=== PATIENT | female | born 1970 | race Caucasian/White ===

== ENCOUNTER 2016-08-31 00:56 | Emergency (ER) | payer BC, OTHER ==
[2016-08-31] MEDS ORDERED: DEXAMETHASONE 10 MG/ML VIAL PO STA (01:06)
[2016-08-31] MEDS ORDERED: ACETAMINOPHEN 500 MG TABLET PO STA (01:07)
[2016-08-31] MEDS ORDERED: ACETAMINOPHEN 500 MG TABLET PO ONE (01:11)
[2016-08-31] MEDS ORDERED: DEXAMETHASONE 10 MG/ML VIAL ONE (01:11)
--- NOTE | 2016-08-31 02:32 | ED Physician Documentation ---
PD HPI UPPER EXT INJURY - Stated complaint Stated Complaint: R SHOULDER PX - Chief complaint Chief Complaint: Ext Problem - History obtained from History obtained from: Patient - History of Present Illness Location: Right, Shoulder Where injury occurred: Home Timing - onset: How many days ago (2) Timing - details: Gradual onset, Still present Improved by: Immobilization Worsened by: Moving, Palpating Similar symptoms before: Work up / diagnostics, Treatment Recently seen: Not recently seen - Additonal information Additional information: Patient is a 46 year old female presenting to the emergency department for right sided shoulder pain. Patient states that she has had problems with different joints in the past. patient states that she is very active and does not remember if there was any type of trauma or if she had fallen recently. there is no outwards sign of trauma. Review of Systems Constitutional: denies: Fever, Chills Eyes: denies: Decreased vision, Photophobia Ears: denies: Ear pain, Drainage/discharge Nose: denies: Rhinorrhea / runny nose, Congestion Throat: denies: Dental pain / toothache, Sore throat Cardiac: denies: Chest pain / pressure Respiratory: denies: Cough GI: denies: Nausea, Vomiting : denies: Dysuria, Frequency Skin: denies: Rash, Lesions Musculoskeletal: reports: Extremity pain, Joint pain. 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 - Present Medications Home Medications: Ambulatory Orders Medication Instructions Recorded Confirmed Flecainide [Tambocar] 50 mg PO BID 12/09/12 08/31/16 Metoprolol Succinate [Toprol Xl] 25 mg PO BID 12/09/12 08/31/16 Ibuprofen [Motrin] 400 mg PO Q6H PRN #30 tablet 12/10/12 08/31/16 DULoxetine [Cymbalta] 90 mg PO DAILY 04/06/13 08/31/16 Hydroxyzine HCl 25 mg PO TID 12/21/13 08/31/16 Tizanidine HCl 4 mg PO QPM 12/21/13 08/31/16 - Allergies Allergies/Adverse Reactions: Allergies Allergy/AdvReac Type Severity Reaction Status Date / Time No Known Drug Allergies Allergy Verified 08/31/16 01:04 - Social History Does the pt smoke?: No Smoking Status: Never smoker Does the pt drink ETOH?: Yes Does the pt have substance abuse?: No - Immunizations Immunizations are current?: Yes Immunizations: TDAP current <10years - POLST Patient has POLST: No PD ED PE NORMAL - Vitals Vital signs reviewed: Yes - General General: Alert and oriented X 3, No acute distress - HEENT HEENT: Atraumatic, PERRL - Neck Neck: Supple, no meningeal sign - Cardiac Cardiac: RRR, No murmur - Respiratory Respiratory: No respiratory distress - Abdomen Abdomen: Soft - Derm Derm: Normal color, Warm and dry, No rash - Neuro Neuro: Alert and oriented X 3, No motor deficit, No sensory deficit, Normal speech - Psych Psych: Normal mood, Normal affect PD ED PE EXPANDED - Extremities Extremities: Right shoulder (mild tenderness to palpation, no gross deformity) Results - Vitals Vitals: Vital Signs - 24 hr 08/31/16 08/31/16 01:00 03:21 Temperature 36.6 C Heart Rate 84 77 Respiratory 18 18 Rate Blood Pressure 123/82 H 122/78 O2 Saturation 98 97 Oxygen O2 Source Room air - Rads (name of study) shoulder x-ray Radiology: Final report received (no acute fracture or dislocation) PD MEDICAL DECISION MAKING - ED course Complexity details: reviewed old records, reviewed results, re-evaluated patient , considered differential, d/w patient ED course: Patient was seen and examined at bedside. patient was treated with toradol and decadron and sent for imaging. when patient returned the results were reviewed. Patient had no acute abnormality and was stable for discharge with outpatient follow up. Departure - Departure Disposition: 01 Home, Self Care Clinical Impression: Shoulder pain, right Condition: Good Instructions: ED RICE Follow-Up: Emery Garcia MD [Provider Admit Priv/Credential] - As Needed Comments: Your x-ray today was within normal limits. there was no acute fracture or dislocation. You should ice the shoulder and can alternate with heat. You should take ibuprofen or tylenol as needed for pain. You should follow up with your pmd or the orthopedist listed if your symptoms persist. You may return to the emergency department at any time if necessary for new, worsening or uncontrollable symptoms. Forms: Activity restrictions Discharge Date/Time: 08/31/16 03:22
--- NOTE | 2016-08-31 03:01 | XRAY Preliminary Report ---
Exam: XR Shoulder 3 View RT IMPRESSION: No acute bony abnormality. [facility] SITE ID: [id number]
--- NOTE | 2016-08-31 03:04 | XRAY Report ---
EXAM: RIGHT SHOULDER RADIOGRAPHY EXAM DATE: 08/31/2016 02:34 AM. CLINICAL HISTORY: Right shoulder pain COMPARISON: 06/14/2009 TECHNIQUE: 3 views. FINDINGS: Bones: No displaced fracture or bone lesion. Lower cervical spinal fixation hardware present. Joints: No dislocation. Soft tissues: Chronic calcific rotator cuff tendinitis noted. IMPRESSION: No acute bony abnormality. [facility] Referring Provider Line: [phone] SITE ID: [id number]
[2016-08-31 03:22] VITALS: BP 122/78
== END 2016-08-31 03:22 | disposition home or self-care (01) ==
LOC: ED 00:56
DX: M25.511 Pain in right shoulder (principal); I10 Essential (primary) hypertension
CPT/HCPCS: 73030; 99283; A9270

== ENCOUNTER 2016-09-15 15:51 | Outpatient (CLI) | payer OTHER ==
--- NOTE | 2016-09-15 20:52 | MRI Report ---
EXAM: RIGHT SHOULDER MRI WITHOUT CONTRAST EXAM DATE: 09/15/2016 04:45 PM. CLINICAL HISTORY: FROZEN RIGHT Shoulder, shoulder IMPINGEMENT SYNDROME. COMPARISON: X-ray 08/31/2016, MR 05/15/2014. TECHNIQUE: Multiplanar, multisequence T1-weighted and fluid-sensitive sequences of the shoulder witho ut contrast. Other: None. FINDINGS: Acromioclavicular Region: The acromion is type II. Mild degenerative joint disease, stable. No subac romial/subdeltoid bursal fluid. Glenohumeral Region: Small surgical anchor superior glenoid with small subarticular cyst. Old biceps/ labral repair. Interval increase in a 1 cm degenerative subcortical cyst in the superior lateral humeral head. No fr acture or marrow edema. Labrum: Labrum appears stable since prior with no interval tear. Small anterior superior labrum versu s postsurgical appearance. Musculature/Rotator Cuff: Mild T2 hyperintensity distal supraspinatus, tendinosis. Remaining rotator cuff tendons intact. No edema or fatty atrophy. Biceps Tendon: The long head of the biceps tendon and biceps kristen are intact. Other: The subcutaneous tissues are unremarkable. IMPRESSION: 1. Stable postoperative appearance superior glenoid, either previous labral and/or biceps anchor appe ar. Labrum appears stable. 2. Mild interval increase in a degenerative subcortical cyst in the superolateral humeral head. 3. Mild distal supraspinatus tendinosis. [facility] MUSCULOSKELETAL RADIOLOGY SECTION Referring Provider Line: [phone] SITE ID: [id number]
== END 2016-09-15 15:52 | disposition home or self-care (01) ==
LOC: DI 15:51
PROVIDERS: ATTEND Family Medicine
DX: M89.8X1 Other specified disorders of bone, shoulder (principal)

== ENCOUNTER 2016-12-19 13:24 | Outpatient (CLI) | payer OTHER ==
[2016-12-19 12:54] LABS: BASOPHILS # (AUTO) 0.1 10^3/uL (0.0-0.1); BASOPHILS % (AUTO) 0.7 %; EOSINOPHILS # (AUTO) 0.6 10^3/uL (0.0-0.7); EOSINOPHILS % (AUTO) 6.2 %; HCT - HEMATOCRIT 42.1 % (37.0-47.0); HGB - HEMOGLOBIN 14.2 g/dL (12.0-16.0); LYMPHOCYTES # (AUTO) 2.2 10^3/uL (1.5-3.5); LYMPHOCYTES % (AUTO) 22.8 %; MEAN CORPUSCULAR HEMOGLOBIN 29.1 pg (27.0-31.0); MEAN CORPUSCULAR HGB CONC 33.8 g/dL (32.0-36.0); MEAN CORPUSCULAR VOLUME 86.1 fL (81.0-99.0); MEAN PLATELET VOLUME 7.6 fL (7.9-10.8); MONOCYTES # (AUTO) 0.6 10^3/uL (0.0-1.0); NEUTROPHILS # (AUTO) 6.3 10^3/uL (1.5-6.6); NEUTROPHILS % (AUTO) 64.3 %; NUCLEATED RED BLOOD CELLS AUTO 0.1 /100WBC; RED BLOOD COUNT 4.89 10^6/uL (4.20-5.40); RED CELL DISTRIBUTION WIDTH 12.6 % (12.0-15.0); UNCORRECTED WHITE BLOOD COUNT 9.8 x10^3/uL; WHITE BLOOD COUNT 9.8 x10^3/uL (4.8-10.8)
[2016-12-19 13:27] LABS: BILIRUBIN,TOTAL 0.3 mg/dL (0.2-1.0); BUN - BLOOD UREA NITROGEN 15 mg/dL (6-20); CALCIUM 9.5 mg/dL (8.5-10.3); CARBON DIOXIDE - CO2 27 mmol/L (21-32); CHLORIDE 103 mmol/L (101-111); CHOL/HDL RATIO 6.4 (<4.4); CHOLESTEROL 212 mg/dL; CREATININE 0.8 mg/dL (0.4-1.0); GFR - MDRD 78 (>89); GLUCOSE 139 mg/dL (70-100); HDL CHOLESTEROL 33 mg/dL; LDL/HDL RATIO 3.1 (<4.4); POTASSIUM 4.4 mmol/L (3.5-5.0); SODIUM 138 mmol/L (135-145); TRIGLYCERIDES 392 mg/dL; VLDL CHOLESTEROL 78 mg/dL
== END 2016-12-19 13:25 | disposition home or self-care (01) ==
LOC: LAB.WCP 13:24
PROVIDERS: ATTEND Physician Assistant Medical
DX: Z00.00 Encounter for general adult medical examination without abnormal findings (principal)
CPT/HCPCS: 36415; 80053; 80061; 84443; 85025

== ENCOUNTER 2017-01-01 08:00 | Outpatient (CLI) | payer OTHER ==
[2017-01-01 20:44] LABS: HEMOGLOBIN A1C 0.8 g/dL
== END 2017-01-01 08:01 | disposition home or self-care (01) ==
LOC: LAB.WCP 08:00
PROVIDERS: ATTEND Physician Assistant Medical
DX: R73.9 Hyperglycemia, unspecified (principal)
CPT/HCPCS: 36415; 83036

== ENCOUNTER 2017-09-24 11:52 | Inpatient (IN) | payer OTHER ==
--- NOTE | 2017-09-24 12:28 | ED Physician Documentation ---
PD HPI NVD - Stated complaint Stated Complaint: VOMITING - Chief complaint Chief Complaint: Abd Pain - History obtained from History obtained from: Patient - History of Present Illness Timing - details: Abrupt onset (4 days ago, and was improved after endoscopy with dilatation of esophagus yesterday.) Associated symptoms: Abdominal pain. No: Fever, Chest pain Contributing factors: No: Sick contact Improved by: Vomiting Worsened by: Eating Recently seen: Surgery (The patient was seen at [facility] on Saturday and given IV fluids and medications. She underwent endoscopy by Dr. Bonilla yesterday and was found to have a food impaction and a stenosis area. The food was removed and the stenosis was dilated. There was some irregular areas that were biopsied. The esophagus was well patent at the time after the endoscopy. The patient had only a few sips of fluid however last evening. She was discharged and went home and this morning upon awakening was having epigastric discomfort and nausea and states she vomited up any attempted oral intake of fluids. She denies any more food intake. This continues into late morning and so she is here for evaluation.) Review of Systems Constitutional: denies: Fever, Chills, Myalgias Nose: denies: Rhinorrhea / runny nose, Congestion Throat: denies: Sore throat GI: reports: Nausea, Vomiting (with attempted oral intake). denies: Abdominal Pain, Diarrhea : denies: Dysuria, Frequency Skin: denies: Rash, Lesions Neurologic: reports: Generalized weakness. 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 - Present Medications Home Medications: Ambulatory Orders Medication Instructions Recorded Confirmed Flecainide [Tambocar] 50 mg PO BID 12/09/12 09/24/17 Metoprolol Succinate [Toprol Xl] 25 mg PO BID 12/09/12 09/24/17 Ibuprofen [Motrin] 400 mg PO Q6H PRN #30 tablet 12/10/12 09/24/17 DULoxetine [Cymbalta] 90 mg PO DAILY 04/06/13 09/24/17 Hydroxyzine HCl 25 mg PO QID PRN 12/21/13 09/24/17 Tizanidine HCl 4 mg PO TID PRN 12/21/13 09/24/17 Bupropion HCl [Bupropion Xl] 300 mg PO DAILY 09/24/17 09/24/17 Mirtazapine [Mirtazapine] 30 mg PO QPM 09/24/17 09/24/17 Multivitamin [Theragran] 1 each PO DAILY 09/24/17 09/24/17 Zolpidem Tartrate [Ambien] 10 mg PO QPM PRN 09/24/17 09/24/17 metFORMIN [Glucophage] 500 mg PO BIDWM 09/24/17 09/24/17 - Allergies Allergies/Adverse Reactions: Allergies Allergy/AdvReac Type Severity Reaction Status Date / Time No Known Drug Allergies Allergy Verified 08/31/16 01:04 - Social History Does the pt smoke?: No Smoking Status: Never smoker Does the pt drink ETOH?: Yes Does the pt have substance abuse?: No - Immunizations Immunizations are current?: Yes Immunizations: TDAP current <10years - POLST Patient has POLST: No PD ED PE NORMAL - Vitals Vital signs reviewed: Yes - General General: Alert and oriented X 3, No acute distress, Well developed/nourished - HEENT HEENT: Ears normal, Pharynx benign. No: Moist mucous membranes - Neck Neck: Supple, no meningeal sign, No adenopathy - Cardiac Cardiac: RRR, No murmur - Respiratory Respiratory: Clear bilaterally - Abdomen Abdomen: Normal bowel sounds, Soft, Non distended, No organomegaly, Other (some tenderness without guarding nor percussion tenderness epigastric area. ) - Back Back: No CVA TTP - Derm Derm: Warm and dry. No: Normal color (somewhat pale) - Extremities Extremities: No deformity, No tenderness to palpate, Normal ROM s pain, No edema , No calf tenderness / cord - Neuro Neuro: Alert and oriented X 3, No motor deficit Eye Opening: Spontaneous Motor: Obeys Commands Verbal: Oriented GCS Score: 15 Results - Vitals Vitals: Vital Signs - 24 hr 09/24/17 09/24/17 09/24/17 12:02 14:11 16:00 Heart Rate 130 H 95 107 H Respiratory 20 16 18 Rate Blood Pressure 127/85 H 118/68 136/81 H O2 Saturation 99 97 96 Oxygen O2 Source Room air - Labs Labs: Laboratory Tests 09/24/17 09/24/17 12:22 12:22 WBC 8.2 RBC 4.94 Hgb 14.4 Hct 42.9 MCV 86.8 MCH 29.1 MCHC 33.5 RDW 12.9 Plt Count 405 MPV 7.1 L Neut # (Auto) 5.9 Lymph # (Auto) 1.4 L [place] # (Auto) 0.5 Eos # (Auto) 0.3 Baso # (Auto) 0.1 Absolute Nucleated RBC 0.00 Nucleated RBC % 0.0 Sodium 135 Potassium 3.5 Chloride 100 L Carbon Dioxide 23 Anion Gap 12.0 BUN 13 Creatinine 1.0 Estimated GFR (MDRD) 60 L Glucose 160 H Calcium 10.1 Phosphorus 3.2 Magnesium 1.8 Total Bilirubin 1.0 AST 34 ALT 37 Alkaline Phosphatase 62 Total Protein 8.5 H Albumin 4.2 Globulin 4.3 H Albumin/Globulin Ratio 1.0 Lipase 37 - Rads (name of study) chest xray Radiology: Prelim report reviewed (no acute process) PD MEDICAL DECISION MAKING - ED course Complexity details: reviewed results, re-evaluated patient (Feeling less nauseated but still vomited back up with just small sips of fluid.), d/w patient , d/w retail sales consultant (Talked with Dr. Greer who is with GI at [facility] and did the patient's scope yesterday. She felt the food was cleared and there was no further impaction and the dilatation was wide open and did not feel the patient would need to be rescoped at this point. She presumes it has some dis-motility and possibly inflammation. See suggest further time for improvement. Consider the idea of an esophagram (our fluoroscopy is down this afternoon we might be able to get it later or tomorrow). Dr. Greer said to contact her in a day or day and a half if the patient is still not able to swallow adequately.), other (talked with Hospitalist Dr. Valadez and conveyed info /conversation with the GI Dr. Greer. ) - Sepsis Event Vital Signs: Vital Signs - 24 hr 09/24/17 09/24/17 09/24/17 12:02 14:11 16:00 Heart Rate 130 H 95 107 H Respiratory 20 16 18 Rate Blood Pressure 127/85 H 118/68 136/81 H O2 Saturation 99 97 96 Oxygen O2 Source Room air Departure - Departure Disposition: ED Place in Observation Clinical Impression: S/P endoscopy Vomiting Qualifiers: Vomiting type: unspecified Vomiting Intractability: intractable Nausea presence : with nausea Qualified Code(s): R11.2 - Nausea with vomiting, unspecified Abdominal pain Qualifiers: Abdominal location: epigastric Qualified Code(s): R10.13 - Epigastric pain Condition: Stable Record reviewed to determine appropriate education?: Yes Discharge Date/Time: 09/24/17 17:30
[2017-09-24] MEDS ORDERED: DEXAMETHASONE 10 MG/ML VIAL IVP STA (12:42)
[2017-09-24] MEDS ORDERED: FAMOTIDINE 20 MG/50 ML 50 ML IV ONE (12:42)
[2017-09-24] MEDS ORDERED: ONDANSETRON 4 MG/2 ML VIAL IVP STA ×2 (12:42→15:22)
[2017-09-24] MEDS ORDERED: SODIUM CHLORIDE 0.9% 1,000 ML IV ONE ×2 (12:42→12:43)
[2017-09-24 12:56] LABS: BASOPHILS # (AUTO) 0.1 10^3/uL (0.0-0.1); BASOPHILS % (AUTO) 0.7 %; EOSINOPHILS # (AUTO) 0.3 10^3/uL (0.0-0.7); EOSINOPHILS % (AUTO) 3.7 %; HGB - HEMOGLOBIN 14.4 g/dL (12.0-16.0); LYMPHOCYTES # (AUTO) 1.4 10^3/uL (1.5-3.5); LYMPHOCYTES % (AUTO) 17.4 %; MEAN CORPUSCULAR HEMOGLOBIN 29.1 pg (27.0-31.0); MEAN CORPUSCULAR HGB CONC 33.5 g/dL (32.0-36.0); MEAN CORPUSCULAR VOLUME 86.8 fL (81.0-99.0); MEAN PLATELET VOLUME 7.1 fL (7.9-10.8); MONOCYTES # (AUTO) 0.5 10^3/uL (0.0-1.0); MONOCYTES % (AUTO) 5.6 %; NEUTROPHILS # (AUTO) 5.9 10^3/uL (1.5-6.6); NEUTROPHILS % (AUTO) 72.6 %; PLT - PLATELET COUNT 405 10^3/uL (130-450); RED BLOOD COUNT 4.94 10^6/uL (4.20-5.40); RED CELL DISTRIBUTION WIDTH 12.9 % (12.0-15.0); WHITE BLOOD COUNT 8.2 x10^3/uL (4.8-10.8)
[2017-09-24 13:00] LABS: ALBUMIN 4.2 g/dL (3.2-5.5); CALCIUM 10.1 mg/dL (8.5-10.3); MAGNESIUM 1.8 mg/dL (1.7-2.8); PHOSPHORUS 3.2 mg/dL (2.5-4.6); TOTAL PROTEIN 8.5 g/dL (6.7-8.2)
--- NOTE | 2017-09-24 16:12 | XRAY Report ---
Procedure Date: 09/24/2017 Accession Number: [id number] / [id number] Procedure: XR - Chest 2 View X-Ray CPT Code: 94570 FULL RESULT: EXAM: CHEST RADIOGRAPHY EXAM DATE: 09/24/2017 03:56 PM. CLINICAL HISTORY: Vomiting; EGD yesterday. COMPARISON: 03/22/2008. TECHNIQUE: 2 views. FINDINGS: Lungs/Pleura: No focal opacities evident. No pleural effusion. No pneumothorax. Normal volumes. Mediastinum: Heart and mediastinal contours are unremarkable. Other: Prior laparoscopic gastric banding. Interval cervical spine fusion. IMPRESSION: Normal 2-view chest radiography. [facility]
--- NOTE | 2017-09-24 16:36 | HISTORY & PHYSICAL EXAMINATION ---
Chief Complaint - Chief Complaint Chief Complaint: Intractable nausea and vomiting History of Present Illness - Admitted From Admitted From:: Home - History Obtained From Records Reviewed: Discharge instructions from EGD yesterday History obtained from: Patient, , ED physician Exam Limitations: None noted - History of Present Illness HPI Comment/Other: Mrs. Chrissie Vides is a very pleasant 47-year-old female who has a history of lap banding many years ago, and he was had a few episodes of obstruction since that time. Last Saturday she ate a cookie and afterwards immediately felt that something might be stuck and she has been unable to drink fluids or eat solids since that time. Yesterday the patient went to [facility] and underwent an EGD with Dr. Bonilla who found that there was some food impacted in the area of the band, which was removed during the EGD, and also feels that there is some residual swelling which is likely causing the current nausea and vomiting. Dr. Bonilla does not feel that the patient should be transferred back down to [place] but rather should be placed inpatient here and watched while she is given fluids, And that the patient should be able to eat in a day or so. 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 - Substance History Use: Uses substance without health or social issues: Cannabis Abuse: Recurrent use of substance despite neg consequences: NONE Dependence: Experiences withdrawal or developed tolerances: NONE - POLST Patient has POLST: No POLST Status: DNR Meds/Allgy - Home Medications Home Medications: Ambulatory Orders Medication Instructions Recorded Confirmed Flecainide [Tambocar] 50 mg PO BID 12/09/12 09/24/17 Metoprolol Succinate [Toprol Xl] 25 mg PO BID 12/09/12 09/24/17 Ibuprofen [Motrin] 400 mg PO Q6H PRN #30 tablet 12/10/12 09/24/17 DULoxetine [Cymbalta] 90 mg PO DAILY 04/06/13 09/24/17 Hydroxyzine HCl 25 mg PO TID 12/21/13 09/24/17 Tizanidine HCl 4 mg PO QPM 12/21/13 09/24/17 buPROPion [Wellbutrin Sr] 100 mg PO BID 09/24/17 09/24/17 - Allergies Allergies/Adverse Reactions: Allergies Allergy/AdvReac Type Severity Reaction Status Date / Time No Known Drug Allergies Allergy Verified 08/31/16 01:04 Review of Systems - Constitutional Constitutional: reports: Fatigue, Weakness, Poor appetite. denies: Fever, Chills - Eyes Eyes: denies: Pain, Irritation, Amaurosis, Blurred vision, Dipolpia - Ears, Nose & Throat Ears, Nose & Throat: denies: Ear pain, Hearing loss, Hearing aids, Tinnitus, Vertigo, Nasal pain, Nasal discharge, Nosebleeds - Cardiovascular Cariovascular: denies: Palpitations, Chest pain, Edema, Syncope - Respiratory Respiratory: denies: Cough, Sputum production, Wheezing, Snoring, Hemoptysis, SOB at rest, SOB with exertion - Gastrointestinal Gastrointestinal: reports: Abdominal pain, Nausea, Vomiting. denies: Constipation, Diarrhea, Rectal bleeding, Black stools, Bloody stools, Bile emesis, [place] blood emesis, Coffee grounds emesis - Genitourinary Genitourinary: denies: Dysuria, Frequency, Urgency, Hematuria - Musculoskeletal Musculoskeletal: denies: Muscle pain, Back pain, Muscle aches, Stiffness - Integumentary Integumentary: denies: Rash, Pruritis, Lesions, Dryness - Neurological Neurological: denies: General weakness, Focal weakness, Headache, Dizziness - Psychiatric Psychiatric: denies: Depression, Anxiety, Suicidal, Hallucinations - Endocrine Endocrine: denies: Polyuria, Polydypsia, Polyphagia - Hematologic/Lymphatic Hematologic/Lymphatic: denies: Anemia, Bruising, Petechiae, Lymphadenopathy - All Other Systems All Other Systems: reports: Reviewed and negative Exam - Vital Signs Reviewed Vital Signs: Yes Vital Signs: Vital Signs x48h Pulse Resp BP Pulse Ox 09/24/17 14:11 95 16 118/68 97 09/24/17 12:02 130 H 20 127/85 H 99 - Physical Exam General Appearance: positive: No acute distress, Alert Eyes Bilateral: positive: Normal inspection, PERRL, EOMI, No lid inflammation, Conjunctivae nml, No scleral icterus ENT: positive: ENT inspection nml, Pharynx nml, No signs of dehydration Neck: positive: Nml inspection, Thyroid nml, No JVD, Trachea midline. negative : Thyromegaly Respiratory: positive: Chest non-tender, No respiratory distress, Breath sounds nml. negative: Wheezes, Rales, Rhonchi Cardiovascular: positive: Regular rate & rhythm, No murmur, No gallop Peripheral Pulses: positive: 1+ Abdomen: positive: Non-tender, No organomegaly, Other (Hypoactive bowel sounds in all 4 quadrants). negative: Guarding, Rebound Back: positive: Nml inspection. negative: CVA tenderness (R), CVA tenderness (L ) Skin: positive: Color nml, No rash, Warm, Dry. negative: Cyanosis Extremities: positive: Non-tender, Full ROM, Nml appearance, No pedal edema Neurologic/Psychiatric: positive: Oriented x3, CN's nml (2-12), Motor nml, Sensation nml, Mood/affect nml Conclusion/Plan - Problem List (1) Intractable nausea and vomiting Conclusion/Plan: Patient underwent an EGD yesterday and it is believed that the nausea and vomiting secondary to swelling in the area of the patient's lap band. She was seen by Dr. Bonilla yesterday who feels that the patient will improve with time and that we should just admit her, give her IV fluids, correct any electrolyte abnormalities, and slowly reintroduce a clear liquid diet. (2) History of cardiac arrhythmia Conclusion/Plan: The patient has a history of PVCs symptomatic chest palpitations. We will continue her on her flecainide and metoprolol while she is inpatient. (3) Hypertension Conclusion/Plan: The patient's blood pressure is fairly well-managed at this time. We will continue her on metoprolol and flecainide. (4) Anxiety and depression Conclusion/Plan: The patient has a history of depression and anxiety, we will continue her on bupropion, Cymbalta, and mirtazapine. (5) Type 2 diabetes mellitus Conclusion/Plan: We will place the patient on a carb controlled diet, continue her metformin while she is inpatient, and monitor her blood sugars. If she is consistently high we will start her on a sliding scale. - Lab Results Lab results reviewed: Yes Fish Bones: 09/24/17 12:22 09/24/17 12:22 - Diagnostic Imaging Results Diagnostic Imaging Results: positive: Final report reviewed Diagnostic Imaging Results Comments: EXAM: CHEST RADIOGRAPHY EXAM DATE: 09/24/2017 03:56 PM. CLINICAL HISTORY: Vomiting; EGD yesterday. COMPARISON: 03/22/2008. TECHNIQUE: 2 views. FINDINGS: Lungs/Pleura: No focal opacities evident. No pleural effusion. No pneumothorax. Normal volumes. Mediastinum: Heart and mediastinal contours are unremarkable. Other: Prior laparoscopic gastric banding. Interval cervical spine fusion. IMPRESSION: Normal 2-view chest radiography. Core Measures - Anticipated LOS I expect patient to be DC'd or transferred within 96 hours.: Yes - DVT/VTE - Prophylaxis VTE/DVT Device ordered at admit?: Yes
[2017-09-24] MEDS ORDERED: TEMAZEPAM 15 MG CAPSULE PO PRN (16:40)
[2017-09-24] MEDS: ONDANSETRON 4 MG/2 ML VIAL IVP PRN (17:50)
[2017-09-24] MEDS: D5.45NS W/20 MEQ KCL 1,000 ML IV SCH (17:50)
[2017-09-24] MEDS: SODIUM CHLORIDE FLUSH 0.9% 10 ML SYRINGE IVP SCH (17:50)
[2017-09-24] MEDS: HYDROmorphone 0.5 MG/0.5 ML SYRINGE IVP PRN (18:09)
[2017-09-24] MEDS: METOPROLOL SUCCINATE 25 MG TABLET PO SCH (19:55)
[2017-09-24] MEDS: FLECAINIDE 50 MG TABLET PO SCH (19:55)
[2017-09-24] MEDS ORDERED: HALOPERIDOL 5 MG/ML VIAL IM ONE (21:09)
[2017-09-24] MEDS ORDERED: PROCHLORPERAZINE 10 MG/2 ML VIAL IVP PRN (21:09)
[2017-09-25] MEDS: SODIUM CHLORIDE FLUSH 0.9% 10 ML SYRINGE IVP SCH ×3 (00:03→16:29)
[2017-09-25] MEDS: D5.45NS W/20 MEQ KCL 1,000 ML IV SCH ×4 (00:03→20:45)
[2017-09-25 05:48] LABS: HGB - HEMOGLOBIN 13.2 g/dL (12.0-16.0); MEAN CORPUSCULAR HEMOGLOBIN 29.1 pg (27.0-31.0); MEAN CORPUSCULAR HGB CONC 32.9 g/dL (32.0-36.0); MEAN CORPUSCULAR VOLUME 88.4 fL (81.0-99.0); MEAN PLATELET VOLUME 6.9 fL (7.9-10.8); RED BLOOD COUNT 4.53 10^6/uL (4.20-5.40); RED CELL DISTRIBUTION WIDTH 13.1 % (12.0-15.0); WHITE BLOOD COUNT 10.9 x10^3/uL (4.8-10.8)
[2017-09-25 06:01] LABS: CALCIUM 8.9 mg/dL (8.5-10.3); CREATININE 0.7 mg/dL (0.4-1.0)
[2017-09-25] MEDS: PANTOPRAZOLE 40 MG VIAL IVP SCH ×2 (06:16→16:29)
[2017-09-25] MEDS: SODIUM CHLORIDE FLUSH 0.9% 10 ML SYRINGE IVP PRN ×4 (06:17→20:38)
[2017-09-25] MEDS: HYDROmorphone 0.5 MG/0.5 ML SYRINGE IVP PRN (06:35)
[2017-09-25] MEDS ORDERED: IBUPROFEN 400 MG TABLET PO PRN (07:40)
[2017-09-25] MEDS ORDERED: ZOLPIDEM 5 MG TABLET PO PRN (07:40)
[2017-09-25] MEDS ORDERED: hydrOXYzine PAMOATE 25 MG CAPSULE PO PRN (07:40)
[2017-09-25] MEDS ORDERED: tiZANidine 4 MG TABLET PO PRN (07:40)
[2017-09-25] MEDS ORDERED: buPROPion XL 150 MG TABLET PO SCH (09:00)
[2017-09-25] MEDS: METOPROLOL SUCCINATE 25 MG TABLET PO SCH ×2 (09:48→20:37)
[2017-09-25] MEDS: metFORMIN 500 MG TABLET PO SCH ×2 (09:51→17:11)
[2017-09-25] MEDS: buPROPion XL 150 MG TABLET PO SCH (09:53)
[2017-09-25] MEDS: DULoxetine 30 MG CAPSULE PO SCH (10:02)
[2017-09-25] MEDS: POLYETHYLENE GLYCOL 3350 17 GM PACKET PO SCH (10:03)
[2017-09-25] MEDS: FLECAINIDE 50 MG TABLET PO SCH ×2 (10:04→20:38)
[2017-09-25] MEDS: MULTIVITAMIN TABLET PO SCH (10:05)
[2017-09-25] MEDS: ONDANSETRON 4 MG/2 ML VIAL IVP PRN (12:57)
--- NOTE | 2017-09-25 16:09 | PROVIDER PROGRESS NOTE ---
Subjective - Prog Note Date Prog Note Date: 09/25/17 Prog Note Time: 15:10 - Subjective Pt reports feeling: Improved Subjective: The patient is showing some improvement. She has been able to drink some sips of fluids and keep it down however she did vomit back up some Jell-O that she had for lunch. She notes that she has been just picking at the Jell-O since that time and has not vomited. She denies any fevers or chills or any significant pain. Current Medications - Current Medications Current Medications: Active Medications Generic Name Dose Route Start Last Admin Trade Name Freq PRN Reason Stop Dose Admin Bupropion HCl 300 mg 09/25/17 09:00 09/25/17 09:53 Wellbutrin Xl PO 300 mg DAILY MARCELA Administration Duloxetine HCl 90 mg 09/25/17 09:00 09/25/17 10:02 Cymbalta PO 90 mg DAILY MARCELA Administration Flecainide Acetate 50 mg 09/24/17 21:00 09/25/17 10:04 Tambocar PO 50 mg BID MARCELA Administration Hydromorphone HCl 0.5 mg 09/24/17 16:40 09/25/17 06:35 Dilaudid Inj Syringe IVP 0.5 mg Q2H PRN Administration Pain 8 to 10 Hydroxyzine Pamoate 25 mg 09/25/17 07:40 Vistaril PO QID PRN Anxiety Potassium Chloride/Dextrose/Sod Cl 1,000 mls @ 150 mls/hr 09/24/17 17:00 07/10 14:03 D5.45ns W/20 Meq Kcl IV 150 mls/hr .Q6H40M MARCELA Administration Ibuprofen 400 mg 09/25/17 07:40 Motrin PO Q6H PRN PAIN Metformin HCl 500 mg 09/25/17 08:00 09/25/17 09:51 Glucophage PO 500 mg BIDWM MARCELA Administration Metoprolol Succinate 25 mg 09/24/17 21:00 09/25/17 09:48 Toprol Xl PO 25 mg BID MARCELA Administration Mirtazapine 30 mg 09/25/17 21:00 Remeron PO QPM MARCELA Multivitamins 1 tab 09/25/17 09:00 09/25/17 10:05 Theragran PO Not Given DAILY MARCELA Ondansetron HCl 4 mg 09/24/17 16:40 09/25/17 12:57 Zofran Inj IVP 4 mg Q6HR PRN Administration Nausea / Vomiting Pantoprazole Sodium 40 mg 09/25/17 07:00 09/25/17 06:16 Protonix IVP 40 mg BIDAC MARCELA Administration Polyethylene Glycol 17 gm 09/25/17 09:00 09/25/17 10:03 Miralax PO Not Given DAILY MARCELA Prochlorperazine Edisylate 10 mg 09/24/17 21:09 Compazine Inj IVP Q4HR PRN Nausea / Vomiting Sodium Chloride 10 ml 09/24/17 16:40 09/25/17 06:17 Normal Saline Flush 0.9% IVP 10 ml PRN PRN Administration NEEDED PER PROVIDER ORDERS Sodium Chloride 10 ml 09/24/17 17:00 09/25/17 10:03 Normal Saline Flush 0.9% IVP Not Given 0100,0900,1700 MARCELA Tizanidine HCl 4 mg 09/25/17 07:40 Zanaflex PO TID PRN Spasms Zolpidem Tartrate 10 mg 09/25/17 07:40 Ambien PO QPM PRN Insomnia Flecainide [Tambocar] 50 mg PO BID 12/09/12 Metoprolol Succinate [Toprol Xl] 25 mg PO BID 12/09/12 DULoxetine [Cymbalta] 90 mg PO DAILY 04/06/13 Hydroxyzine HCl 25 mg PO QID PRN 12/21/13 Tizanidine HCl 4 mg PO TID PRN 12/21/13 Bupropion HCl [Bupropion Xl] 300 mg PO DAILY 09/24/17 Mirtazapine [Mirtazapine] 30 mg PO QPM 09/24/17 Multivitamin [Theragran] 1 each PO DAILY 09/24/17 Zolpidem Tartrate [Ambien] 10 mg PO QPM PRN 09/24/17 metFORMIN [Glucophage] 500 mg PO BIDWM 09/24/17 Objective - Vital Signs/Intake & Output Reviewed Vital Signs: Yes Vital Signs: Vital Signs x48h Temp Pulse Resp BP Pulse Ox 09/25/17 15:38 36.9 C 80 16 115/70 96 09/25/17 13:24 36.6 C 70 16 116/59 L 97 Intake & Output: Intake & Output 07/01/18 07/02/18 07/03/18 07/04/18 23:59 23:59 23:59 23:59 Intake Total 150 3165.0 Balance 150 3165.0 - Objective General Appearance: positive: Alert, Mild distress Eyes Bilateral: positive: Normal inspection, PERRL, EOMI, No lid inflammation, Conjunctivae nml, No scleral icterus ENT: positive: ENT inspection nml, Pharynx nml, No signs of dehydration Neck: positive: Nml inspection, Thyroid nml, No JVD, Trachea midline. negative : Thyromegaly Respiratory: positive: Chest non-tender, No respiratory distress, Breath sounds nml. negative: Wheezes, Rales, Rhonchi Cardiovascular: positive: Regular rate & rhythm, No murmur, No gallop Abdomen: positive: Non-tender, No organomegaly, Nml bowel sounds, No distention. negative: Guarding, Rebound Back: positive: Nml inspection. negative: CVA tenderness (R), CVA tenderness (L ) Skin: positive: Color nml, No rash, Warm, Dry. negative: Cyanosis Extremities: positive: Non-tender, Full ROM, Nml appearance, No pedal edema Neurologic/Psychiatric: positive: Oriented x3, CN's nml (2-12), Motor nml, Sensation nml, Mood/affect nml - Lab Results Fish Bones: 09/25/17 05:25 09/25/17 05:25 Other Labs: Lab Results x24hrs 09/25/17 09/25/17 Range/Units 05:25 05:25 WBC 10.9 H (4.8-10.8) x10^3/uL RBC 4.53 (4.20-5.40) 10^6/uL Hgb 13.2 (12.0-16.0) g/dL Hct 40.0 (37.0-47.0) % MCV 88.4 (81.0-99.0) fL MCH 29.1 (27.0-31.0) pg MCHC 32.9 (32.0-36.0) g/dL RDW 13.1 (12.0-15.0) % Plt Count 375 (130-450) 10^3/uL MPV 6.9 L (7.9-10.8) fL Sodium 137 (135-145) mmol/L Potassium 4.0 (3.5-5.0) mmol/L Chloride 105 (101-111) mmol/L Carbon Dioxide 26 (21-32) mmol/L Anion Gap 6.0 (6-13) BUN 9 (6-20) mg/dL Creatinine 0.7 (0.4-1.0) mg/dL Estimated GFR (MDRD) 90 (>89) Glucose 196 H (70-100) mg/dL Calcium 8.9 (8.5-10.3) mg/dL ABX Reporting Has patient been on IV antibiotics over the past 48 hours?: No Assessment/Plan - Problem List (1) Intractable nausea and vomiting Impression: The patient underwent an EGD 2 days ago and with Soap Sl[employer] Dr. Bonilla who reportedly removed some impacted food and who feels that the patient is experiencing some swelling in the area which is causing her current issues. Dr. Bonilla feels that if we are patient Mrs. Vides will be able to feed again relatively soon. She is tolerating sips of liquids at this time which she could not do yesterday. Continue present care. (2) History of cardiac arrhythmia Impression: The patient has a history of PVCs/symptomatic chest palpitations. We will continue her on her flecainide and metoprolol while she is inpatient.She denies any palpitations while she has been inpatient to this point. (3) Hypertension Impression: The patient's blood pressure has been well-managed up to this point. We will continue her on metoprolol and flecainide. (4) Anxiety and depression Impression: The patient has a history of depression and anxiety, we will continue her on bupropion, Cymbalta, and mirtazapine. (5) Type 2 diabetes mellitus Impression: We will place the patient on a carb controlled diet, continue her metformin while she is inpatient, and monitor her blood sugars. This morning the patient' s blood sugar was 196 but she had not received any metformin since her admission. I will continue to monitor and if her blood sugar is consistently high we will start her on a sliding scale.
[2017-09-25] MEDS: DEXAMETHASONE 4 MG/ML VIAL IVP SCH ×2 (17:00→20:38)
[2017-09-25] MEDS: MIRTAZAPINE 15 MG TABLET PO SCH (20:37)
[2017-09-26] MEDS: D5.45NS W/20 MEQ KCL 1,000 ML IV SCH ×4 (03:12→23:27)
[2017-09-26] MEDS: SODIUM CHLORIDE FLUSH 0.9% 10 ML SYRINGE IVP SCH ×3 (03:14→16:26)
[2017-09-26] MEDS: PANTOPRAZOLE 40 MG VIAL IVP SCH ×2 (06:02→16:26)
[2017-09-26] MEDS: SODIUM CHLORIDE FLUSH 0.9% 10 ML SYRINGE IVP PRN ×6 (06:03→21:10)
[2017-09-26 06:06] LABS: HGB - HEMOGLOBIN 13.2 g/dL (12.0-16.0); MEAN CORPUSCULAR HEMOGLOBIN 28.9 pg (27.0-31.0); MEAN CORPUSCULAR HGB CONC 32.2 g/dL (32.0-36.0); MEAN CORPUSCULAR VOLUME 89.5 fL (81.0-99.0); MEAN PLATELET VOLUME 7.1 fL (7.9-10.8); RED BLOOD COUNT 4.57 10^6/uL (4.20-5.40); RED CELL DISTRIBUTION WIDTH 13.7 % (12.0-15.0); WHITE BLOOD COUNT 11.2 x10^3/uL (4.8-10.8)
[2017-09-26 06:17] LABS: CALCIUM 8.7 mg/dL (8.5-10.3); CREATININE 0.8 mg/dL (0.4-1.0)
[2017-09-26] MEDS: metFORMIN 500 MG TABLET PO SCH ×2 (08:56→17:15)
[2017-09-26] MEDS: FLECAINIDE 50 MG TABLET PO SCH ×2 (08:57→21:03)
[2017-09-26] MEDS: DULoxetine 30 MG CAPSULE PO SCH (08:57)
[2017-09-26] MEDS: METOPROLOL SUCCINATE 25 MG TABLET PO SCH ×2 (08:57→21:03)
[2017-09-26] MEDS: buPROPion XL 150 MG TABLET PO SCH (08:57)
[2017-09-26] MEDS: MULTIVITAMIN TABLET PO SCH (08:57)
[2017-09-26] MEDS: POLYETHYLENE GLYCOL 3350 17 GM PACKET PO SCH (08:58)
[2017-09-26] MEDS: DEXAMETHASONE 4 MG/ML VIAL IVP SCH ×4 (08:58→21:10)
--- NOTE | 2017-09-26 12:36 | PROVIDER PROGRESS NOTE ---
Subjective - Prog Note Date Prog Note Date: 09/26/17 Prog Note Time: 12:35 - Subjective Pt reports feeling: Improved Subjective: The patient is doing much better today. She is smiling for the first time since her admission. She says she feels relief in her abdomen and denies any pain. She is drinking fluids easier but still has not had any solid foods. She denies any fevers, chills, shortness of breath, or chest pain. Current Medications - Current Medications Current Medications: Active Medications Generic Name Dose Route Start Last Admin Trade Name Freq PRN Reason Stop Dose Admin Bupropion HCl 300 mg 09/25/17 09:00 09/26/17 08:57 Wellbutrin Xl PO 300 mg DAILY MARCELA Administration Dexamethasone 4 mg 09/25/17 17:00 09/26/17 08:58 Decadron IVP 4 mg QID MARCELA Administration Duloxetine HCl 90 mg 09/25/17 09:00 09/26/17 08:57 Cymbalta PO 90 mg DAILY MARCELA Administration Flecainide Acetate 50 mg 09/24/17 21:00 09/26/17 08:57 Tambocar PO 50 mg BID MARCELA Administration Hydromorphone HCl 0.5 mg 09/24/17 16:40 09/25/17 06:35 Dilaudid Inj Syringe IVP 0.5 mg Q2H PRN Administration Pain 8 to 10 Hydroxyzine Pamoate 25 mg 09/25/17 07:40 Vistaril PO QID PRN Anxiety Potassium Chloride/Dextrose/Sod Cl 1,000 mls @ 150 mls/hr 09/24/17 17:00 08/09 09:54 D5.45ns W/20 Meq Kcl IV 150 mls/hr .Q6H40M MARCELA Administration Ibuprofen 400 mg 09/25/17 07:40 Motrin PO Q6H PRN PAIN Metformin HCl 500 mg 09/25/17 08:00 09/26/17 08:56 Glucophage PO 500 mg BIDWM MARCELA Administration Metoprolol Succinate 25 mg 09/24/17 21:00 09/26/17 08:57 Toprol Xl PO 25 mg BID MARCELA Administration Mirtazapine 30 mg 09/25/17 21:00 09/25/17 20:37 Remeron PO 30 mg QPM MARCELA Administration Multivitamins 1 tab 09/25/17 09:00 07/05/18 08:57 Theragran PO 1 tab DAILY MARCELA Administration Ondansetron HCl 4 mg 09/24/17 16:40 09/25/17 12:57 Zofran Inj IVP 4 mg Q6HR PRN Administration Nausea / Vomiting Pantoprazole Sodium 40 mg 09/25/17 07:00 09/26/17 06:02 Protonix IVP 40 mg BIDAC MARCELA Administration Polyethylene Glycol 17 gm 09/25/17 09:00 09/26/17 08:58 Miralax PO 17 gm DAILY MARCELA Administration Prochlorperazine Edisylate 10 mg 09/24/17 21:09 09/25/17 17:00 Compazine Inj IVP 10 mg Q4HR PRN Administration Nausea / Vomiting Sodium Chloride 10 ml 09/24/17 16:40 09/26/17 09:53 Normal Saline Flush 0.9% IVP 10 ml PRN PRN Administration NEEDED PER PROVIDER ORDERS Sodium Chloride 10 ml 09/24/17 17:00 09/26/17 08:58 Normal Saline Flush 0.9% IVP 10 ml 0100,0900,1700 MARCELA Administration Tizanidine HCl 4 mg 09/25/17 07:40 Zanaflex PO TID PRN Spasms Zolpidem Tartrate 10 mg 09/25/17 07:40 Ambien PO QPM PRN Insomnia Flecainide [Tambocar] 50 mg PO BID 12/09/12 Metoprolol Succinate [Toprol Xl] 25 mg PO BID 12/09/12 DULoxetine [Cymbalta] 90 mg PO DAILY 04/06/13 Hydroxyzine HCl 25 mg PO QID PRN 12/21/13 Tizanidine HCl 4 mg PO TID PRN 12/21/13 Bupropion HCl [Bupropion Xl] 300 mg PO DAILY 09/24/17 Mirtazapine [Mirtazapine] 30 mg PO QPM 09/24/17 Multivitamin [Theragran] 1 each PO DAILY 09/24/17 Zolpidem Tartrate [Ambien] 10 mg PO QPM PRN 09/24/17 metFORMIN [Glucophage] 500 mg PO BIDWM 09/24/17 Objective - Vital Signs/Intake & Output Reviewed Vital Signs: Yes Vital Signs: Vital Signs x48h Temp Pulse Resp BP Pulse Ox 09/26/17 07:32 36.5 C 75 16 108/75 99 09/26/17 04:37 36.5 C 66 17 108/78 97 Intake & Output: Intake & Output 09/23/17 09/24/17 09/25/17 09/26/17 23:59 23:59 23:59 23:59 Intake Total 150 4585.0 2307.5 Output Total 400 Balance 150 4585.0 1907.5 - Objective General Appearance: positive: No acute distress, Alert Eyes Bilateral: positive: Normal inspection, PERRL, EOMI, No lid inflammation, Conjunctivae nml, No scleral icterus ENT: positive: ENT inspection nml, Pharynx nml, No signs of dehydration Neck: positive: Nml inspection, Thyroid nml, No JVD, Trachea midline. negative : Thyromegaly Respiratory: positive: Chest non-tender, No respiratory distress, Breath sounds nml. negative: Wheezes, Rales, Rhonchi Cardiovascular: positive: Regular rate & rhythm, No murmur, No gallop Abdomen: positive: No organomegaly, Nml bowel sounds, Tenderness. negative: Guarding, Rebound, Mass Back: positive: Nml inspection. negative: CVA tenderness (R), CVA tenderness (L ) Skin: positive: Color nml, No rash, Warm, Dry. negative: Cyanosis Extremities: positive: Non-tender, Full ROM, Nml appearance, No pedal edema Neurologic/Psychiatric: positive: Oriented x3, CN's nml (2-12), Motor nml, Sensation nml, Mood/affect nml - Lab Results Fish Bones: 09/26/17 05:40 09/26/17 05:40 Other Labs: Lab Results x24hrs 09/26/17 09/26/17 09/25/17 Range/Units 05:40 05:40 16:44 WBC 11.2 H (4.8-10.8) x10^3/uL RBC 4.57 (4.20-5.40) 10^6/uL Hgb 13.2 (12.0-16.0) g/dL Hct 40.9 (37.0-47.0) % MCV 89.5 (81.0-99.0) fL MCH 28.9 (27.0-31.0) pg MCHC 32.2 (32.0-36.0) g/dL RDW 13.7 (12.0-15.0) % Plt Count 364 (130-450) 10^3/uL MPV 7.1 L (7.9-10.8) fL Sodium 138 (135-145) mmol/L Potassium 4.2 (3.5-5.0) mmol/L Chloride 107 (101-111) mmol/L Carbon Dioxide 25 (21-32) mmol/L Anion Gap 6.0 (6-13) BUN 8 (6-20) mg/dL Creatinine 0.8 (0.4-1.0) mg/dL Estimated GFR (MDRD) 77 L (>89) Glucose 178 H (70-100) mg/dL POC Whole Bld Glucose 126 H (70 - 100) mg/dL Calcium 8.7 (8.5-10.3) mg/dL - Diagnostic Imaging Diagnostic Imaging Results: positive: Final report reviewed Diagnostic Imaging Comments: EXAM: CHEST RADIOGRAPHY EXAM DATE: 09/24/2017 03:56 PM. CLINICAL HISTORY: Vomiting; EGD yesterday. COMPARISON: 03/22/2008. TECHNIQUE: 2 views. FINDINGS: Lungs/Pleura: No focal opacities evident. No pleural effusion. No pneumothorax. Normal volumes. Mediastinum: Heart and mediastinal contours are unremarkable. Other: Prior laparoscopic gastric banding. Interval cervical spine fusion. IMPRESSION: Normal 2-view chest radiography. ABX Reporting Has patient been on IV antibiotics over the past 48 hours?: No Assessment/Plan - Problem List (1) Intractable nausea and vomiting Impression: The patient underwent an EGD 3 days ago and with Order Detailer Dr. Bonilla who reportedly removed some impacted food and who feels that the patient is experiencing some swelling in the area which is causing her current issues. Dr. Bonilla feels that if we are patient Mrs. Vides will be able to feed again relatively soon. She has been tolerating a clear liquid diet much more easily than she could yesterday. Continue steroids, IVFs. (2) History of cardiac arrhythmia Impression: Patient has a history of PVCs/symptomatic chest palpitations. We will continue her on her home flecainide and metoprolol while she is in the hospital. She denies any palpitations so far during this hospitalization. (3) Hypertension Impression: The patient's blood pressure has been well-managed up to this point. We will continue her on metoprolol and flecainide. (4) Anxiety and depression Impression: The patient has a history of depression and anxiety, we will continue her on bupropion, Cymbalta, and mirtazapine. (5) Type 2 diabetes mellitus Impression: We will place the patient on a carb controlled diet, continue her metformin while she is inpatient, and monitor her blood sugars. The patient's highest blood sugar during this hospitalization was 196 but she had not received any metformin since her admission prior to that reading. I will continue to monitor and if her blood sugar is consistently high we will start her on a sliding scale.
[2017-09-26] MEDS: ONDANSETRON 4 MG/2 ML VIAL IVP PRN (12:50)
[2017-09-26] MEDS: MIRTAZAPINE 15 MG TABLET PO SCH (21:03)
[2017-09-27 05:30] LABS: HGB - HEMOGLOBIN 13.2 g/dL (12.0-16.0); MEAN CORPUSCULAR HEMOGLOBIN 29.1 pg (27.0-31.0); MEAN CORPUSCULAR HGB CONC 32.5 g/dL (32.0-36.0); MEAN CORPUSCULAR VOLUME 89.5 fL (81.0-99.0); MEAN PLATELET VOLUME 7.1 fL (7.9-10.8); RED BLOOD COUNT 4.53 10^6/uL (4.20-5.40); RED CELL DISTRIBUTION WIDTH 13.5 % (12.0-15.0); WHITE BLOOD COUNT 13.4 x10^3/uL (4.8-10.8)
[2017-09-27 05:38] LABS: CALCIUM 8.8 mg/dL (8.5-10.3); CREATININE 0.7 mg/dL (0.4-1.0)
[2017-09-27] MEDS: D5.45NS W/20 MEQ KCL 1,000 ML IV SCH ×3 (05:48→20:00)
[2017-09-27] MEDS: SODIUM CHLORIDE FLUSH 0.9% 10 ML SYRINGE IVP SCH ×4 (05:49→23:38)
[2017-09-27] MEDS: PANTOPRAZOLE 40 MG VIAL IVP SCH ×2 (05:51→16:39)
[2017-09-27] MEDS: DULoxetine 30 MG CAPSULE PO SCH (08:25)
[2017-09-27] MEDS: FLECAINIDE 50 MG TABLET PO SCH ×2 (08:25→20:02)
[2017-09-27] MEDS: DEXAMETHASONE 4 MG/ML VIAL IVP SCH ×4 (08:26→20:02)
[2017-09-27] MEDS: MULTIVITAMIN TABLET PO SCH (08:26)
[2017-09-27] MEDS: buPROPion XL 150 MG TABLET PO SCH (08:26)
[2017-09-27] MEDS: METOPROLOL SUCCINATE 25 MG TABLET PO SCH ×2 (08:26→20:02)
[2017-09-27] MEDS: metFORMIN 500 MG TABLET PO SCH ×2 (08:26→16:40)
[2017-09-27] MEDS: POLYETHYLENE GLYCOL 3350 17 GM PACKET PO SCH (08:38)
--- NOTE | 2017-09-27 14:36 | PROVIDER PROGRESS NOTE ---
Subjective - Prog Note Date Prog Note Date: 09/27/17 Prog Note Time: 12:25 - Subjective Pt reports feeling: Improved Subjective: The patient has had her first solid food since her hospitalization for lunch today. She had a pured diet and she ate about half of it; she says it felt "heavy" in her stomach so she stopped when she was about senior care finished. She was able to tolerate this feeding without any significant nausea and without any vomiting.We will continue with the pured diet tonight and advance her diet to soft tomorrow. If she tolerates this we will consider discharge. Current Medications - Current Medications Current Medications: Active Medications Generic Name Dose Route Start Last Admin Trade Name Freq PRN Reason Stop Dose Admin Bupropion HCl 300 mg 09/25/17 09:00 09/27/17 08:26 Wellbutrin Xl PO 300 mg DAILY MARCELA Administration Dexamethasone 4 mg 09/25/17 17:00 09/27/17 13:12 Decadron IVP 4 mg QID MARCELA Administration Duloxetine HCl 90 mg 09/25/17 09:00 09/27/17 08:25 Cymbalta PO 90 mg DAILY MARCELA Administration Flecainide Acetate 50 mg 09/24/17 21:00 09/27/17 08:25 Tambocar PO 50 mg BID MARCELA Administration Hydromorphone HCl 0.5 mg 09/24/17 16:40 09/25/17 06:35 Dilaudid Inj Syringe IVP 0.5 mg Q2H PRN Administration Pain 8 to 10 Hydroxyzine Pamoate 25 mg 09/25/17 07:40 Vistaril PO QID PRN Anxiety Potassium Chloride/Dextrose/Sod Cl 1,000 mls @ 150 mls/hr 09/24/17 17:00 09/09 13:15 D5.45ns W/20 Meq Kcl IV 150 mls/hr .Q6H40M MARCELA Administration Ibuprofen 400 mg 09/25/17 07:40 Motrin PO Q6H PRN PAIN Metformin HCl 500 mg 09/25/17 08:00 09/27/17 08:26 Glucophage PO 500 mg BIDWM MARCELA Administration Metoprolol Succinate 25 mg 09/24/17 21:00 09/27/17 08:26 Toprol Xl PO 25 mg BID MARCELA Administration Mirtazapine 30 mg 09/25/17 21:00 09/26/17 21:03 Remeron PO 30 mg QPM MACRELA Administration Multivitamins 1 tab 09/25/17 09:00 09/27/17 08:26 Theragran PO 1 tab DAILY MARCELA Administration Ondansetron HCl 4 mg 09/24/17 16:40 09/26/17 12:50 Zofran Inj IVP 4 mg Q6HR PRN Administration Nausea / Vomiting Pantoprazole Sodium 40 mg 09/25/17 07:00 09/27/17 05:51 Protonix IVP 40 mg BIDAC MARCELA Administration Polyethylene Glycol 17 gm 09/25/17 09:00 09/27/17 08:38 Miralax PO Not Given DAILY MARCELA Prochlorperazine Edisylate 10 mg 09/24/17 21:09 09/25/17 17:00 Compazine Inj IVP 10 mg Q4HR PRN Administration Nausea / Vomiting Sodium Chloride 10 ml 09/24/17 16:40 09/26/17 21:10 Normal Saline Flush 0.9% IVP 10 ml PRN PRN Administration NEEDED PER PROVIDER ORDERS Sodium Chloride 10 ml 09/24/17 17:00 09/27/17 08:38 Normal Saline Flush 0.9% IVP 10 ml 0100,0900,1700 MARCELA Administration Tizanidine HCl 4 mg 09/25/17 07:40 Zanaflex PO TID PRN Spasms Zolpidem Tartrate 10 mg 09/25/17 07:40 Ambien PO QPM PRN Insomnia Flecainide [Tambocar] 50 mg PO BID 12/09/12 Metoprolol Succinate [Toprol Xl] 25 mg PO BID 12/09/12 DULoxetine [Cymbalta] 90 mg PO DAILY 04/06/13 Hydroxyzine HCl 25 mg PO QID PRN 12/21/13 Tizanidine HCl 4 mg PO TID PRN 12/21/13 Bupropion HCl [Bupropion Xl] 300 mg PO DAILY 09/24/17 Mirtazapine [Mirtazapine] 30 mg PO QPM 09/24/17 Multivitamin [Theragran] 1 each PO DAILY 09/24/17 Zolpidem Tartrate [Ambien] 10 mg PO QPM PRN 09/24/17 metFORMIN [Glucophage] 500 mg PO BIDWM 09/24/17 Objective - Vital Signs/Intake & Output Reviewed Vital Signs: Yes Vital Signs: Vital Signs x48h Temp Pulse Resp BP Pulse Ox 09/27/17 11:31 36.9 C 87 20 125/77 95 09/27/17 08:00 36.7 C 66 24 104/63 95 Intake & Output: Intake & Output 09/24/17 09/25/17 09/26/17 09/27/17 23:59 23:59 23:59 23:59 Intake Total 150 4585.0 5528.5 2582.5 Output Total 400 Balance 150 4585.0 5128.5 2582.5 - Objective General Appearance: positive: No acute distress, Alert Eyes Bilateral: positive: Normal inspection, PERRL, EOMI, No lid inflammation, Conjunctivae nml, No scleral icterus ENT: positive: ENT inspection nml, Pharynx nml, No signs of dehydration Neck: positive: Nml inspection, Thyroid nml, No JVD, Trachea midline. negative : Thyromegaly Respiratory: positive: Chest non-tender, No respiratory distress, Breath sounds nml. negative: Wheezes, Rales, Rhonchi Cardiovascular: positive: Regular rate & rhythm, No murmur, No gallop Abdomen: positive: Non-tender, No organomegaly, Nml bowel sounds, No distention. negative: Guarding, Rebound, Mass Back: positive: Nml inspection. negative: CVA tenderness (R), CVA tenderness (L ) Skin: positive: Color nml, No rash, Warm, Dry. negative: Cyanosis Extremities: positive: Non-tender, Full ROM, Nml appearance, No pedal edema Neurologic/Psychiatric: positive: Oriented x3, CN's nml (2-12), Motor nml, Sensation nml, Mood/affect nml - Lab Results Fish Bones: 09/27/17 05:15 09/27/17 05:15 Other Labs: Lab Results x24hrs 09/27/17 09/27/17 09/27/17 Range/Units 11:23 07:24 05:15 WBC (4.8-10.8) x10^3/uL RBC (4.20-5.40) 10^6/uL Hgb (12.0-16.0) g/dL Hct (37.0-47.0) % MCV (81.0-99.0) fL MCH (27.0-31.0) pg MCHC (32.0-36.0) g/dL RDW (12.0-15.0) % Plt Count (130-450) 10^3/uL MPV (7.9-10.8) fL Sodium 138 (135-145) mmol/L Potassium 3.7 (3.5-5.0) mmol/L Chloride 105 (101-111) mmol/L Carbon Dioxide 25 (21-32) mmol/L Anion Gap 8.0 (6-13) BUN 8 (6-20) mg/dL Creatinine 0.7 (0.4-1.0) mg/dL Estimated GFR (MDRD) 90 (>89) Glucose 167 H (70-100) mg/dL POC Whole Bld Glucose 107 H 138 H (70 - 100) mg/dL Calcium 8.8 (8.5-10.3) mg/dL 09/27/17 09/26/17 Range/Units 05:15 17:14 WBC 13.4 H (4.8-10.8) x10^3/uL RBC 4.53 (4.20-5.40) 10^6/uL Hgb 13.2 (12.0-16.0) g/dL Hct 40.5 (37.0-47.0) % MCV 89.5 (81.0-99.0) fL MCH 29.1 (27.0-31.0) pg MCHC 32.5 (32.0-36.0) g/dL RDW 13.5 (12.0-15.0) % Plt Count 390 (130-450) 10^3/uL MPV 7.1 L (7.9-10.8) fL Sodium (135-145) mmol/L Potassium (3.5-5.0) mmol/L Chloride (101-111) mmol/L Carbon Dioxide (21-32) mmol/L Anion Gap (6-13) BUN (6-20) mg/dL Creatinine (0.4-1.0) mg/dL Estimated GFR (MDRD) (>89) Glucose (70-100) mg/dL POC Whole Bld Glucose 135 H (70 - 100) mg/dL Calcium (8.5-10.3) mg/dL ABX Reporting Has patient been on IV antibiotics over the past 48 hours?: No Assessment/Plan - Problem List (1) Intractable nausea and vomiting Impression: Related to blockage secondary to gastric banding. We were able to advance the patient's diet to a pured diet today from clear liquids and she was able to tolerate about half of her lunch. We will continue the pured diet tonight and advance the diet tomorrow morning. We will consider discharging her home when she is able tolerate a soft diet. (2) History of cardiac arrhythmia Impression: Patient has a history of PVCs/symptomatic chest palpitations. We will continue her on her home flecainide and metoprolol while she is in the hospital. She denies any palpitations so far during this hospitalization. (3) Anxiety and depression Impression: The patient has a history of depression and anxiety, we will continue her on bupropion, Cymbalta, and mirtazapine. (4) Hypertension Impression: The patient's blood pressure has been well-managed up to this point. We will continue her on metoprolol and flecainide. Qualifiers: Hypertension type: essential hypertension Qualified Code(s): I10 - Essential (primary) hypertension (5) Type 2 diabetes mellitus Impression: We placed the patient on a carb controlled diet and have monitored her blood sugars. The patient's highest blood sugar during this hospitalization was 196 but she had not received any metformin since her admission prior to that reading. I will continue to monitor and if her blood sugar is consistently high we will start her on a sliding scale.
[2017-09-27] MEDS: ONDANSETRON 4 MG/2 ML VIAL IVP PRN (17:55)
[2017-09-27] MEDS: MIRTAZAPINE 15 MG TABLET PO SCH (20:02)
[2017-09-28] MEDS: D5.45NS W/20 MEQ KCL 1,000 ML IV SCH ×2 (02:18→09:03)
[2017-09-28 06:13] LABS: HGB - HEMOGLOBIN 13.1 g/dL (12.0-16.0); MEAN CORPUSCULAR HEMOGLOBIN 28.9 pg (27.0-31.0); MEAN CORPUSCULAR HGB CONC 32.7 g/dL (32.0-36.0); MEAN CORPUSCULAR VOLUME 88.4 fL (81.0-99.0); MEAN PLATELET VOLUME 7.4 fL (7.9-10.8); RED BLOOD COUNT 4.53 10^6/uL (4.20-5.40); RED CELL DISTRIBUTION WIDTH 13.4 % (12.0-15.0)
[2017-09-28] MEDS: SODIUM CHLORIDE FLUSH 0.9% 10 ML SYRINGE IVP SCH (06:32)
[2017-09-28] MEDS: PANTOPRAZOLE 40 MG VIAL IVP SCH (06:32)
[2017-09-28] MEDS: SODIUM CHLORIDE FLUSH 0.9% 10 ML SYRINGE IVP PRN ×3 (06:32→12:27)
[2017-09-28 06:37] LABS: CALCIUM 8.9 mg/dL (8.5-10.3); CREATININE 0.8 mg/dL (0.4-1.0)
[2017-09-28] MEDS: METOPROLOL SUCCINATE 25 MG TABLET PO SCH (08:52)
[2017-09-28] MEDS: metFORMIN 500 MG TABLET PO SCH (08:52)
[2017-09-28] MEDS: buPROPion XL 150 MG TABLET PO SCH (08:53)
[2017-09-28] MEDS: DEXAMETHASONE 4 MG/ML VIAL IVP SCH ×2 (08:53→12:27)
[2017-09-28] MEDS: DULoxetine 30 MG CAPSULE PO SCH (08:53)
[2017-09-28] MEDS: POLYETHYLENE GLYCOL 3350 17 GM PACKET PO SCH (08:53)
[2017-09-28] MEDS: FLECAINIDE 50 MG TABLET PO SCH (08:53)
[2017-09-28] MEDS: MULTIVITAMIN TABLET PO SCH (08:53)
--- NOTE | 2017-09-28 14:17 | Discharge Plan ---
Discharge Plan Disposition: 01 Home, Self Care Condition: Stable Diet: Soft Activity Restrictions: Activity as Tolerated Shower Restrictions: No Driving Restrictions: No Weight Bearing: Full Weight No Smoking: If you smoke, Please STOP! Call for help. Follow-up with: Edel Pacheco PA-C [Primary Care Provider] -
--- NOTE | 2017-09-28 14:19 | DISCHARGE SUMMARY ---
Discharge Summary Admit Date: 09/24/17 Discharge Date: 09/28/17 Discharging Provider: Medina Valadez DO Primary Care Provider: Edel Pacheco Code Status: Do Not Attempt Resuscitation Condition at Discharge: Stable Discharge Disposition: 01 Home, Self Care - DIAGNOSES Admission Diagnoses: 1. Intractable nausea and vomiting 2. History of cardiac arrhythmia 3. Hypertension 4. Anxiety and depression 5. Type 2 diabetes mellitus Discharge Diagnoses with Status of Each Condition: 1. Intractable nausea and vomiting- Thought to be related to the patient's lap banding from 7 years ago. She had an upper endoscopy where parts of a cookie were removed from that area and unfortunately she had a lot of swelling which is taken several days to relieve. She ate a pured diet yesterday and today has tolerated a soft diet. I will discharge her home on a Medrol Dosepak with a soft diet. 2. History of cardiac arrhythmia- Patient has a history of PVCs and symptomatic chest palpitations. She will resume her home dosing of flecainide and metoprolol on discharge.She has been in normal sinus rhythm during this hospitalization. 3. Hypertension- The patient's blood pressure has been fairly well-managed while she has been inpatient. We will continue on her home dosing of metoprolol and flecainide. 4. Anxiety and depression- Patient has a history of depression and anxiety, we will continue her on her home dosing of bupropion, Cymbalta, and mirtazapine. 5. Type 2 diabetes mellitus- The patient's blood sugars have been well controlled while she has been inpatient. She will resume her home medication regimen. - HPI History of Present Illness: Mrs. Chrissie Vides is a very pleasant 47-year-old female who has a history of lap banding many years ago, and he was had a few episodes of obstruction since that time. Last Saturday she ate a cookie and afterwards immediately felt that something might be stuck and she has been unable to drink fluids or eat solids since that time. Yesterday the patient went to [facility] and underwent an EGD with Dr. Bonilla who found that there was some food impacted in the area of the band, which was removed during the EGD, and also feels that there is some residual swelling which is likely causing the current nausea and vomiting. Dr. Bonilla does not feel that the patient should be transferred back down to [place] but rather should be placed inpatient here and watched while she is given fluids, And that the patient should be able to eat in a day or so. - HOSPITAL COURSE Hospital Course: The patient was admitted to medical surgical bed after presenting to the emergency department with intractable nausea and vomiting. She had had an upper endoscopy done the day prior by Dr. Bonilla who removed some parts of a cookie but noted there was a lot of swelling around her lap band area. After consulting with Dr. Bonilla it was felt that the best course would be the bring the patient into the hospital, and slowly advance her diet. Yesterday she was able to have pured meals and today the patient has tolerated a soft diet. We will discharge her home on a soft diet. - ALLERGIES Allergies/Adverse Reactions: Allergies Allergy/AdvReac Type Severity Reaction Status Date / Time No Known Drug Allergies Allergy Verified 08/31/16 01:04 - MEDICATIONS Home Medications: Ambulatory Orders Medication Instructions Recorded Confirmed Flecainide [Tambocar] 50 mg PO BID 12/09/12 09/24/17 Metoprolol Succinate [Toprol Xl] 25 mg PO BID 12/09/12 09/24/17 Ibuprofen [Motrin] 400 mg PO Q6H PRN #30 tablet 12/10/12 09/24/17 DULoxetine [Cymbalta] 90 mg PO DAILY 04/06/13 09/24/17 Hydroxyzine HCl 25 mg PO QID PRN 12/21/13 09/24/17 Tizanidine HCl 4 mg PO TID PRN 12/21/13 09/24/17 Bupropion HCl [Bupropion Xl] 300 mg PO DAILY 09/24/17 09/24/17 Mirtazapine 30 mg PO QPM 09/24/17 09/24/17 Multivitamin [Theragran] 1 each PO DAILY 09/24/17 09/24/17 Zolpidem Tartrate [Ambien] 10 mg PO QPM PRN 09/24/17 09/24/17 metFORMIN [Glucophage] 500 mg PO BIDWM 09/24/17 09/24/17 - PHYSICAL EXAM AT DISCHARGE General Appearance: positive: No acute distress, Alert Eyes Bilateral: positive: Normal inspection, PERRL, EOMI, No lid inflammation, Conjunctivae nml, No scleral icterus ENT: positive: ENT inspection nml, Pharynx nml, No signs of dehydration Neck: positive: Nml inspection, Thyroid nml, No JVD, Trachea midline. negative : Thyromegaly Respiratory: positive: Chest non-tender, No respiratory distress, Breath sounds nml. negative: Wheezes, Rales, Rhonchi Cardiovascular: positive: Regular rate & rhythm, No murmur, No gallop Peripheral Pulses: positive: 1+ Abdomen: positive: Non-tender, No organomegaly, Nml bowel sounds, No distention. negative: Guarding, Rebound Back: positive: Nml inspection. negative: CVA tenderness (R), CVA tenderness (L ) Skin: positive: Color nml, No rash, Warm, Dry. negative: Cyanosis Extremities: positive: Non-tender, Full ROM, Nml appearance, No pedal edema Neurologic/Psychiatric: positive: Oriented x3, CN's nml (2-12), Motor nml - LABS Result Diagrams: 09/28/17 05:35 09/28/17 05:35 - DIAGNOSTIC IMAGING Diagnostic Imaging Results: Final report reviewed Diagnostic Imaging Results Comments: EXAM: CHEST RADIOGRAPHY EXAM DATE: 09/24/2017 03:56 PM. CLINICAL HISTORY: Vomiting; EGD yesterday. COMPARISON: 03/22/2008. TECHNIQUE: 2 views. FINDINGS: Lungs/Pleura: No focal opacities evident. No pleural effusion. No pneumothorax. Normal volumes. Mediastinum: Heart and mediastinal contours are unremarkable. Other: Prior laparoscopic gastric banding. Interval cervical spine fusion. IMPRESSION: Normal 2-view chest radiography. - FOLLOW UP Follow Up: Follow-up with Edel Pacheco in 1 week - TIME SPENT Time Spent in Discharge (Minutes): 40
[2017-09-28 14:32] VITALS: BP 127/72
== END 2017-09-28 14:34 | disposition home or self-care (01) | DRG 921 ==
LOC: ED 11:52 → MS2 16:40
PROVIDERS: ADMIT Hospitalist; ATTEND Hospitalist
DX: T85.598A Other mechanical complication of other gastrointestinal prosthetic devices, implants and grafts, initial encounter (principal); K31.89 Other diseases of stomach and duodenum; R11.2 Nausea with vomiting, unspecified; Y83.1 Surgical operation with implant of artificial internal device as the cause of abnormal reaction of the patient, or of later complication, without mention of misadventure at the time of the procedure; Z98.84 Bariatric surgery status; I10 Essential (primary) hypertension; I49.3 Ventricular premature depolarization; F41.9 Anxiety disorder, unspecified; F32.9 Major depressive disorder, single episode, unspecified; E11.9 Type 2 diabetes mellitus without complications; Z79.84 Long term (current) use of oral hypoglycemic drugs; Z79.899 Other long term (current) drug therapy; Z66 Do not resuscitate
CPT/HCPCS: 36415; 71046; 80048; 80053; 83690; 83735; 84100; 85025; 85027; 96361; 96365; 96375; 96376; 99283; 99284